=== PATIENT | female | born 1985 | race Caucasian/White ===

== ENCOUNTER 2022-05-26 18:26 | Outpatient (REF) | payer BC, SELFPAY ==
[2022-05-26 19:28] LABS: HCT 39.8 % (36.0-46.0); HGB 13.1 g/dL (11.2-15.7); MCH 27.6 pg (27.0-33.0); MCHC 32.9 % (32.0-36.0); MCV 84 fL (80-95); MPV 11.4 fL (8.0-11.0); Platelet Count 285 10^3/uL (130-400); RBC 4.75 10^6/uL (3.93-5.22); RDW 11.9 % (11.7-14.6); RDW-SD 36.1 fL; WBC 4.86 10^3/uL (4.4-10.8)
[2022-05-26 19:37] LABS: ALT 19 U/L (14-59); AST 16 U/L (15-37); Albumin 3.8 g/dL (3.4-5.0); Alkaline Phosphatase 44 U/L (46-116); Anion Gap 9.4 mmol/L (3-11); BUN 17 mg/dL (7-18); Bilirubin, Total 0.3 mg/dL (0.2-1.0); CO2 28.6 mmol/L (21.0-32.0); CREATININE 0.9 mg/dL (0.55-1.02); Calcium 9.4 mg/dL (8.5-10.1); Chloride 110 mmol/L (98-107); Glucose 87 mg/dL (74-106); Potassium 4.6 mmol/L (3.5-5.1); Sodium 148 mmol/L (136-145); Total Protein 7.8 g/dL (6.4-8.2)
== END 2022-05-26 18:27 | disposition home or self-care (01) ==
LOC: NCHCN 18:26
PROVIDERS: Visit Provider Nurse Practitioner Family
DX: Z00.00 Encounter for general adult medical examination without abnormal findings (principal)
CPT/HCPCS: 80053; 85027

== ENCOUNTER 2022-07-18 16:13 | Outpatient (REF) | payer BC, SELFPAY ==
--- NOTE | 2022-07-18 15:50 | PAPFT_PTH ---
PATIENT: Mirlande Bergman LOC: [facility] U#:[id number] AGE/SX: 37/F ROOM: RE07/18/[address]: Lorri Guerrero MD : [id number] BED: DIS: 07/18/2022 SPEC #: [id number] RECD: 07/18/22 18:12 STATUS: DUNIA REQ #: [id number] MARY: 07/18/22 15:[address]: Lorri Guerrero DEPT: [facility] Cytology RECD BY: Niesha Yao Tissues: 1 - CX/ENDOCX FOR PAP SMEARS Procedures: PAP THIN PREP/UVM Screening HPV DNA PROBE Comments: [id number]
== END 2022-07-18 16:14 | disposition home or self-care (01) ==
LOC: LBN 16:13
PROVIDERS: Visit Provider Obstetrics & Gynecology
DX: Z12.4 Encounter for screening for malignant neoplasm of cervix (principal); Z11.51 Encounter for screening for human papillomavirus (HPV)
CPT/HCPCS: 88142; 87624

== ENCOUNTER 2025-03-31 17:36 | Outpatient (REF) | payer OTHER, SELFPAY ==
[2025-03-31 20:38] LABS: HCT 38.1 % (36.0-46.0); HGB 12.3 g/dL (11.2-15.7); MCH 27.5 pg (27.0-33.0); MCHC 32.3 % (32.0-36.0); MCV 85 fL (80-95); MPV 11.5 fL (8.0-11.0); Platelet Count 274 10^3/uL (130-400); RBC 4.47 10^6/uL (3.93-5.22); RDW 12.3 % (11.7-14.6); RDW-SD 38.0 fL; WBC 4.85 10^3/uL (4.4-10.8)
[2025-03-31 20:57] LABS: ALT 26 U/L (14-59); AST 21 U/L (15-37); Albumin 3.7 g/dL (3.4-5.0); Alkaline Phosphatase 53 U/L (46-116); Anion Gap 9.1 mmol/L (3-11); BUN 15 mg/dL (7-18); Bilirubin, Total 0.3 mg/dL (0.2-1.0); CO2 25.9 mmol/L (21.0-32.0); Calcium 9.4 mg/dL (8.5-10.1); Calculated LDL 92 mg/dL (<100); Chloride 105 mmol/L (98-107); Cholesterol 170 mg/dL (<200); Estimated GFR 95.46 (mL/min/1.73m2); Glucose 95 mg/dL (74-106); HDL Cholesterol 68 mg/dL (>or=50); Potassium 3.9 mmol/L (3.5-5.1); Sodium 140 mmol/L (136-145); Total Protein 7.0 g/dL (6.4-8.2); Triglyceride 52 mg/dL (<150)
== END 2025-03-31 17:37 | disposition home or self-care (01) ==
LOC: NCHCN 17:36
PROVIDERS: Visit Provider Nurse Practitioner Family
DX: Z00.00 Encounter for general adult medical examination without abnormal findings (principal)
CPT/HCPCS: 80053; 80061; 85027

== ENCOUNTER 2025-04-02 01:57 | Outpatient (CLI) | payer OTHER, SELFPAY ==
--- NOTE | 2025-04-02 | DI.MAMMO_ITS ---
Exam(s) MAMMO SCREENING EXAM: MAMMO SCREENING CLINICAL HISTORY: SCREENING,Z12.31. TECHNIQUE: Bilateral full field digital CC and MLO mammographic images were obtained with 3D tomosynthesis and utilizing computer aided detection (CAD). COMPARISON: Prior mammograms were reviewed. FINDINGS: The fibroglandular tissue pattern is moderately dense, this somewhat decreasing the sensitivity of the mammogram for finding hidden underlying lesions. There are no obvious spiculated masses nor malignant appearing microcalcification groups. There is no significant architectural distortion nor skin thickening-retraction. IMPRESSION: Dense bilateral fibroglandular tissue. No radiographic evidence of malignancy. BI-RADS Category 1 - Negative Breast Density - Category C - The breast are heterogeneously dense, which may obscure small masses. Breast density Category C or D implies that the patient has dense breast tissue. Dense breast tissue can make it harder to find cancer on a mammogram. Dense breast tissue is also associated with an increased risk of breast cancer. This information about the result of the mammogram report was provided to the patient to raise their awareness. Use this report when you speak with the patient about their risks for breast cancer, which includes their family history. At that time, you may recommend additional screening tests (Ultrasound or MRI) as these tests may add significant information. A negative radiographic report should not delay biopsy if a dominant or clinically suspicious mass is present. Up to ten percent of cancers are not identified on mammography. A negative report may reinforce clinical impression. Adenosis and dense breasts may obscure an underlying neoplasm. False positive reports average 6 to 10%. Patient will receive a letter notifying them of these results.
== END 2025-04-02 02:17 ==
PROVIDERS: PCP Nurse Practitioner Family; Visit Provider Nurse Practitioner Family
DX: Z12.31 Encounter for screening mammogram for malignant neoplasm of breast (principal); R92.333 Mammographic heterogeneous density, bilateral breasts
CPT/HCPCS: 77063; 77067